=== PATIENT | female | born 1955 | race Caucasian/White ===

== ENCOUNTER 2023-01-08 21:40 | Emergency (ER) | payer MEDICARE, OTHER ==
[~2023-01-08 21:40] MED LIST: Lactated Ringer's 1,000 ML BAG ONE
[2023-01-08] MEDS ORDERED: Ondansetron PF 4 MG/2 ML Vial ONE (22:06)
[2023-01-08] MEDS ORDERED: Dicyclomine 10 MG CAP ONE (22:06)
[2023-01-08] MEDS ORDERED: Aspirin Chewable 81 MG TAB ONE (22:06)
[2023-01-08 22:37] LABS: Band 1 % (5-11); Hematocrit 37.2 % (36.0-47.0); Hemoglobin 12.4 g/dL (12.0-16.0); Lymphocytes 21 % (21-51); MDiff Complete? YES; Mean Corpuscular HGB CONC 33.4 g/dL (32.0-36.0); Mean Corpuscular Hemoglobin 29.3 pg (27.0-31.0); Mean Corpuscular Volume 87.7 fl (78.0-98.0); Mean Platelet Volume 8.4 fL (7.4-10.4); Monocytes 13 % (0-10); Neutrophil 65 % (42-75); Platelet Adequacy Comment Appears Adequate; Platelet Count 137 10x3/uL (130-400); RBC Distribution Width 12.7 % (11.5-14.5); Red Blood Cell (RBC) Count 4.24 mill/uL (4.20-5.40); White Blood Cell (WBC) Count 2.9 10x3/uL (4.8-10.8)
[2023-01-08 22:39] LABS: PTT 30.8 sec (22.9-36.1); Prothrombin Time 13.1 sec (12.0-14.7)
[2023-01-08 22:49] LABS: Troponin I Less than 0.010 ng/mL (< 0.028)
[2023-01-08 22:51] LABS: ALT (SGPT) 13 U/L (8-55); AST (SGOT) 25 U/L (5-34); Alkaline Phosphatase 67 U/L (40-110); Anion Gap 16 mmol/L (10-20); BUN (Urea Nitrogen) 12 mg/dL (9.8-20.1); Bilirubin, Total 0.4 mg/dL (0.2-1.2); Calc. Creatinine Clearance 0 mL/min (70-130); Calcium 8.6 mg/dL (7.8-10.44); Carbon Dioxide 20 mmol/L (23-31); Chloride 104 mmol/L (98-107); Estimated GFR 72; Globulin 2.4 g/dL (2.4-3.5); Glucose 89 mg/dL (80-115); Lipase 16 U/L (8-78); Potassium 3.8 mmol/L (3.5-5.1); Protein, Total 6.4 g/dL (5.8-8.1); Sodium 136 mmol/L (136-145)
[2023-01-09 00:10] LABS: Bilirubin Negative (Negative); Blood, Urine Negative (Negative); Clarity Clear (Clear); Glucose, Urine (Dipstick) Negative (Negative); Ketone, Urine Negative (Negative); Leukocyte Negative (Negative); Nitrite Negative (Negative); Protein, Urine (Dipstick) Negative (Neg-Trace); Urobilinogen 0.2 mg/dL (Less than 2); pH, Urine 6.5 (5.0-9.0)
[2023-01-09 00:12] LABS: CAUTI Indications for Culture Fever or rigors; RBC/HPF 0-3 HPF (0-3); Squamous Epithelial 0-3 HPF (0-3); WBC/HPF None Seen HPF (0-3)
[2023-01-09 00:13] LABS: Urine Culture Reflex No No
[2023-01-09] MEDS ORDERED: Azithromycin 500 MG VIAL ONE (00:45)
[2023-01-09] MEDS ORDERED: cefTRIAXone (ROCEPHIN) 1 GM VIAL ONE (00:48)
[2023-01-09 01:41] LABS: Troponin I Less than 0.010 ng/mL (< 0.028)
== END 2023-01-09 02:07 | disposition home or self-care (01) ==
LOC: MADERS 21:40
DX: U07.1 COVID-19 (principal); J12.82 Pneumonia due to coronavirus disease 2019; M79.9 Soft tissue disorder, unspecified; I10 Essential (primary) hypertension
CPT/HCPCS: 71046; 74177; 81001; 83605; 83690; 83735; 84484; 85610; 85730; 87040; 87635; 87804 ×2; 93005; 94760; 96365; 96368; 96375; 99285; J0456; 80053; 84443; 85025; J0696; J2405; J7050; J7120